=== PATIENT | female | born 1985 | race Asian ===

== ENCOUNTER 2023-07-28 05:00 | Inpatient (IN) | payer BC ==
[2023-07-28] MEDS ORDERED: Bupivacaine 0.25% HCL 30 ML VIAL ONE (08:00)
[2023-07-28 17:32] VITALS: BMI 26.5
[2023-07-28] MEDS ORDERED: Diphenoxylate HCl/Atropine Tablet PO PRN ×2 (18:17)
[2023-07-28] MEDS ORDERED: Acetaminophen 500 MG TAB PO PRN (18:17)
[2023-07-28] MEDS ORDERED: Carboprost 250 MCG/ML AMP IM PRN (18:17)
[2023-07-28] MEDS ORDERED: fentaNYL 50 mcg/mL 1 mL Vial SLOW IVP PRN (18:17)
[2023-07-28] MEDS ORDERED: Lactated Ringer's 1,000 ML IV SCH (18:17)
[2023-07-28] MEDS ORDERED: Ondansetron PF 4 MG/2 ML Vial IVP PRN ×2 (18:17→22:55)
[2023-07-28] MEDS ORDERED: Promethazine HCl 25 MG/ML VIAL IM PRN ×2 (18:17→22:55)
[2023-07-28] MEDS ORDERED: Tranexamic Acid 1,000 MG/10 ML VIAL IVP PRN (18:17)
[2023-07-28] MEDS ORDERED: Oxytocin 30 units/NS 500 ML 500 ML IV SCH ×2 (18:17)
[2023-07-28] MEDS ORDERED: hydrALAZINE 20 MG/ML VIAL SLOW IVP PRN ×2 (18:17→23:27)
[2023-07-28] MEDS ORDERED: Misoprostol 200 MCG TAB PR PRN (18:17)
[2023-07-28] MEDS ORDERED: HYDROcodone/Acetaminophen 5/325 mg Tablet PO PRN ×3 (18:17→23:27)
[2023-07-28] MEDS ORDERED: Ibuprofen 800 MG TAB PO PRN (18:17)
[2023-07-28] MEDS ORDERED: Lidocaine 1% (PF) 30 ML VIAL SC PRN (18:17)
[2023-07-28] MEDS ORDERED: Methylergonovine 0.2 MG/ML VIAL IM PRN (18:17)
[2023-07-28 19:10] LABS: Hematocrit 38.8 % (34.9-44.5); Hemoglobin 12.8 g/dL (12.0-15.5); Mean Corpuscular Hemoglobin 28.8 pg (27.0-33.0); Mean Corpuscular Volume 87.2 fl (81.6-98.3); Mean Platelet Volume 11.6 fl (7.4-10.4); Platelet Count 212 10x3/uL (150-450); RBC Distribution Width 14.6 % (11.5-14.5); Red Blood Cell (RBC) Count 4.45 10x6/uL (3.90-5.03); White Blood Cell (WBC) Count 7.1 10x3/uL (3.5-10.5)
[2023-07-28] MEDS ORDERED: fentaNYL/Ropivacaine Epidural 100 ML ONE (19:20)
[2023-07-28 19:34] LABS: Syphilis Antibody Nonreactive (Nonreactive); Syphilis Antibody Index 0.14 S/CO (<1.00 Non-Reactive)
[2023-07-28 19:36] LABS: HBSAg Index 0.14 S/CO (0-0.99); Hep B Surf Ag - L&D Non-Reactive S/CO (NonReactive)
[2023-07-28] MEDS ORDERED: Sodium Bicarbonate 2.5 MEQ/5 ML VIAL ONE (21:42)
[2023-07-28] MEDS ORDERED: Calcium Carbonate 500 MG ChewTAB PO SCH (22:30)
[2023-07-28] MEDS ORDERED: diphenhydrAMINE 50 MG/ML VIAL IVP PRN (22:55)
[2023-07-28] MEDS ORDERED: Lactated Ringer's 500 ML IV PRN (22:55)
[2023-07-28] MEDS ORDERED: ePHEDrine Sulfate 50 MG/10 ML VIAL SLOW IVP PRN (22:55)
[2023-07-28] MEDS ORDERED: Acetaminophen 325 MG TAB PO PRN (22:55)
[2023-07-28] MEDS ORDERED: Moisturizing Cream (Eucerin) 113 GM JAR TOP PRN (22:55)
[2023-07-28] MEDS ORDERED: Naloxone HCl 0.4 mg/ml Vial IVP PRN ×2 (22:55)
[2023-07-28] MEDS ORDERED: Communication Order-Pharmacy FS SCH (23:00)
[2023-07-28] MEDS ORDERED: fentaNYL 2 mcg/Ropivacaine 0.2% Epidural 100 ML CADD EPIDURAL SCH (23:00)
[2023-07-28] MEDS ORDERED: Simethicone Chewable 80 MG TAB PO PRN (23:27)
[2023-07-28] MEDS ORDERED: Bisacodyl 10 MG SUPP PR PRN (23:27)
[2023-07-28] MEDS ORDERED: Lanolin Ointment 7 GM TUBE TOP PRN (23:27)
[2023-07-28] MEDS ORDERED: Boostrix 0.5 ML (Tdap) VIAL (>/=7 yrs of age) IM ONE (23:27)
[2023-07-28] MEDS ORDERED: diphenhydrAMINE 25 MG CAP PO PRN (23:27)
[2023-07-29 06:11] LABS: Hematocrit 35.8 % (34.9-44.5); Hemoglobin 11.7 g/dL (12.0-15.5); Mean Corpuscular HGB CONC 32.7 g/dL (32.0-36.0); Mean Corpuscular Hemoglobin 28.7 pg (27.0-33.0); Mean Platelet Volume 10.9 fl (7.4-10.4); Platelet Count 186 10x3/uL (150-450); RBC Distribution Width 14.6 % (11.5-14.5); Red Blood Cell (RBC) Count 4.07 10x6/uL (3.90-5.03); White Blood Cell (WBC) Count 13.4 10x3/uL (3.5-10.5)
[2023-07-29] MEDS: Ibuprofen 800 MG TAB PO SCH (06:24)
[2023-07-29] MEDS: Docusate 100 MG CAP PO SCH (09:02)
[2023-07-29] MEDS: Prenatal Vitamin 1 TAB PO SCH (09:03)
[2023-07-29 19:37] VITALS: TEMP 98.6
[2023-07-30] MEDS: Docusate 100 MG CAP PO SCH ×2 (00:22→08:12)
[2023-07-30] MEDS: Ibuprofen 800 MG TAB PO SCH ×2 (00:22→05:48)
[2023-07-30 00:27] VITALS: BP 124/69
[2023-07-30] MEDS: Prenatal Vitamin 1 TAB PO SCH (08:12)
== END 2023-07-30 09:30 | disposition home or self-care (01) | DRG 807 ==
LOC: CSHLD 17:11 → CSHPP 07-29 01:50
PROVIDERS: ADMIT Obstetrics & Gynecology; ATTEND Obstetrics & Gynecology
PROC: 10E0XZZ Delivery of Products of Conception, External Approach (ICD-10-PCS; principal; 2023-07-28)
PROC: 10907ZC Drainage of Amniotic Fluid, Therapeutic from Products of Conception, Via Natural or Artificial Opening (ICD-10-PCS; 2023-07-28)
PROC: 3E033XZ Introduction of Vasopressor into Peripheral Vein, Percutaneous Approach (ICD-10-PCS; 2023-07-28)
DX: O80 Encounter for full-term uncomplicated delivery (principal); Z37.0 Single live birth; Z3A.39 39 weeks gestation of pregnancy
CPT/HCPCS: 36415; 51702; 85027; 86780; 86850; 86900; 86901; 87340; J2590; S0020